=== PATIENT | female | born 1990 | race Two or more races ===

== ENCOUNTER 2025-04-12 12:27 | Emergency (ER) | payer BC, OTHER ==
[2025-04-12 12:42] VITALS: BP 119/57; PULSE 82; RESP 16; TEMP 98.1; BMI 24.7
[2025-04-12] MEDS ORDERED: LIDOCAINE 4% PATCH TP ONE (13:23)
[2025-04-12] MEDS ORDERED: IBUPROFEN 600 MG TABLET (FP) PO ONE (13:23)
[2025-04-12] MEDS: IBUPROFEN 600 MG TABLET (FP) PO ONE (13:27)
[2025-04-12] MEDS: LIDOCAINE 4% PATCH TP ONE (13:27)
== END 2025-04-12 15:31 | disposition home or self-care (01) ==
LOC: JERFT 12:27
DX: S46.911A Strain of unspecified muscle, fascia and tendon at shoulder and upper arm level, right arm, initial encounter (principal); X50.1XXA Overexertion from prolonged static or awkward postures, initial encounter
CPT/HCPCS: 99283-25